=== PATIENT | male | born 1945 | race Caucasian/White ===

== ENCOUNTER → 2017-04-15 | Outpatient (CLI) | payer MEDICARE, BC ==
[~2017-04-15] MED LIST: ASPIR-LOW81 MG PO; CIPRO 500MG TA500 MG PO; FLEXERIL10 MG PO; FLOMAX 0.4MG C0.4 MG PO; FUROSEMIDE20 MG PO; LEVOTHYROXIN0.125 M2 PO; LOFIBRA134 MG PO; LORTAB 5/500 501 TAB PO; LOSARTAN POTAS100 MG PO; MEDROL 4MG. DOSE4 MG PO; METOPROLOL50 MG PO; MIRALAX17 GM/PACK PO; MULTI VITAMINS1 TA1 PO; OMEPRAZOLE40 MG PO; POTASSIUM CHLO10 ME3 PO; PRAVASTATIN 20M20 MG PO; SIMVASTATIN40 MG PO; VITAMIN D400 IU PO
[2017-04-15 13:32] LABS: BUN 16 mg/dL (7-18)
[2017-04-15 13:45] LABS: HEMOGLOBIN 16.7 g/dL (14.1-18.0); LYMPH # 2.4 K/mm3 (0.7-4.5)
[2017-04-15 13:48] LABS: GFR (ESTIMATED) 60 ML/MIN (>60)
== END ==
LOC: LAB 12:22
PROVIDERS: Internal Medicine Cardiovascular Disease
DX: I47.2 Ventricular tachycardia (principal); I42.9 Cardiomyopathy, unspecified; I25.10 Atherosclerotic heart disease of native coronary artery without angina pectoris; I10 Essential (primary) hypertension; E78.5 Hyperlipidemia, unspecified

== ENCOUNTER → 2017-06-06 | Outpatient (CLI) | payer MEDICARE, BC | LOC: LAB 10:55 | DX: E11.9 Type 2 diabetes mellitus without complications (principal); F34.1 Dysthymic disorder ==